=== PATIENT | female | born 1965 | race African-American/Black ===

== ENCOUNTER 2016-12-19 05:28 | Inpatient (IN) | payer OTHER ==
[2016-12-13 12:56] LABS: HEMATOCRIT 39.8 % (37.0-47.0); MCH 26.5 pg (26.0-34.0); MCHC 32.6 g/dL (28.0-37.0); MCV 81.4 fL (80.0-100.0); RBC 4.9 mil/uL (4.20-5.00); RDW 13.9 % (10.5-14.5); WBC 5.8 thou/uL (4.0-11.0)
[2016-12-13 12:58] LABS: URINE BILIRUBIN NEGATIVE (Negative); URINE BLOOD NEGATIVE (Negative); URINE COLOR YELLOW; URINE GLUCOSE-RANDOM* NEGATIVE (Negative); URINE KETONES NEGATIVE (Negative); URINE LEUKOCYTES-REFLEX NEGATIVE (Negative); URINE PROTEIN (DIPSTICK) NEGATIVE (Negative); URINE UROBILINOGEN 0.2 E.U./dl (0.2-1.0)
[2016-12-13 13:09] LABS: CALCIUM 9.6 mg/dL (8.5-10.1); CREATININE 0.7 mg/dL (0.6-1.0); POTASSIUM 3.8 mmol/L (3.5-5.1)
[2016-12-13 13:11] LABS: PROTIME 10.1 Seconds (9.3-11.4)
[~2016-12-19] VITALS: Ht 160 cm; Wt 103.4 kg
--- NOTE | ~2016-12-19 | O ---
[facility] [place] [address] OPERATIVE REPORT Name: JESÚS BLUE Room #: 150-1 ADM IN M.R.#: [id number] Admission: 12/19/16 Attend Phys: Gera Ellison MD Discharge: Date of : 61 Report #: [id number] THIS REPORT FOR: //name// CC: Valeria Ellison DATE OF SERVICE: 12/19/2016 PREOPERATIVE DIAGNOSIS: Right hip osteoarthritis. POSTOPERATIVE DIAGNOSIS: Right hip osteoarthritis. PROCEDURE: Right total hip arthroplasty. SURGEON: Gera Ellison MD. PROGRAM ANALYST: Carmen Lisa PA-C. INDICATION FOR ASSISTANCE: Extensive manipulation and retraction of soft tissues and leg was required during the surgery. This was afforded to me by my assistant analyst. ANESTHESIA: LMA. IMPLANTS: [employer] size 10 standard offset Synergy press fit stem, a size 52 R3 acetabular cup with a size 36 -3 Oxinium head. ESTIMATED BLOOD LOSS: 250 mL. COMPLICATIONS: None. SPECIMENS: None. CONDITION UPON LEAVING THE OPERATING ROOM: Stable. INDICATION FOR PROCEDURE: The patient is a 51-year-old female with severe right hip osteoarthritis. She had failed conservative treatment for this and after discussion with her, she elected for right total hip arthroplasty. DESCRIPTION OF PROCEDURE: Risks, benefits, alternatives, complications were discussed in detail with the patient including but not limited to risk of anesthesia, risk of damage to nerves, arteries, blood vessels, risk for infection, bleeding, risk for continued hip pain, leg length discrepancy, instability and need for reoperation. Informed consent was obtained from the patient. Right hip was appropriately marked in the preoperative holding area. IV Ancef was given for preoperative antibiotics. She was brought to the [address] [address] OPERATIVE REPORT Name: JESÚS BLUE Room #: 150-1 ADM IN M.R.#: [id number] Admission: 12/19/16 Attend Phys: Gera Ellison MD Discharge: Date of : 61 Report #: [id number] operating room and placed in the supine position on operating room table. LMA anesthesia was induced without complication. She was then placed in the left lateral decubitus position with the right hip uppermost. Right hip and lower extremity were prepped and draped in normal sterile fashion. Timeout was performed properly identifying the patient and procedure as well as the instrumentation and implants. All in the operating room were in agreement. Standard posterior approach to the right hip was made with a 10 blade through the skin. Dissection was taken down to the fascia with Bovie cautery and a Mak elevator was used to clean off the fascia. A fresh 10 blade was used to make a fascial incision and this was taken proximally and distally with curved Chen scissor. Charnley retractor was placed and the trochanteric bursa was taken down with Bovie. Piriformis tendon was identified, tagged and taken down with Bovie cautery. Short external rotators were also taken down with Bovie. Capsulotomy was made and capsule ends were tagged for later repair. The hip was dislocated and there was extensive osteoarthritic change of the femoral head. A femoral neck cut 1 cm proximal to lesser trochanter was made based on preoperative templating and the femoral head was removed. Deep acetabular retractors were placed and the labrum was removed sharply. Pulvinar was removed with Bovie cautery. Acetabulum was then sequentially reamed up to a size 52, at which point, there was excellent bleeding cancellous bone. A size 51 trial cup was placed and found to have a good fit. A trial cup was removed and a final size 52 R3 acetabular cup was placed in the acetabulum and seated. One acetabular screw was placed for backup fixation and the polyethylene liner for 36 head was placed. Attention was turned to the femur. This was reamed and broached up to a size 10, at which point, a size 10 broach was stable. This was trialed with a standard offset neck and a 36 -3 head. Hip was reduced, taken through range of motion, found to be stable, found to have equal leg lengths. Hip was dislocated and the broach was removed and final size 10 standard offset Synergy press fit stem was placed. Hip was again reduced, taken through range of motion, found to be stable, found to have equal leg lengths. Hip was dislocated one more time and a final size 36 -3 Oxinium head was placed. Hip again was reduced, taken through range of motion, found to be stable, found to have equal leg lengths. Wound was thoroughly irrigated with normal saline. Periarticular injection consisting of morphine, ropivacaine, epinephrine and Toradol was placed around the hip joint. A gram of vancomycin was placed deep in the hip joint. The capsule and piriformis were repaired with 0 FiberWire. Fascia was closed with 0 Vicryl. Skin was closed with 2-0 Vicryl and 3-0 Monocryl. Dermabond and Acticoat dressings were applied. The patient tolerated this procedure well and went to the recovery room under the care of anesthesia postoperatively. By: [id number] Gera Ellison MD /kuldip
--- NOTE | ~2016-12-19 | EKG ---
[place] [address] [facility] [place] [address] ELECTROCARDIOGRAM REPORT Name: JESÚS BLUE Room #: PRE IN [facility].#: [id number] Admission: Attend Phys: Gera Ellison MD Discharge: Date of : 61 Report #: [id number] THIS REPORT FOR: //name// [facility] Test Date: 2016-12-13 Test Time: 12:52:25 Pat Name: JESÚS BLUE Department: Room: Gender: F [employer] Helper: silvestre weller : 1965 Requested By: Gera Ellison Order Number: [id number] MD: Taz Joshi Measurements Intervals [place] Rate: 71 P: 30 FL: 143 QRS: 49 QRSD: 93 T: -33 QT: 396 QTc: 431 Interpretive Statements Sinus rhythm Inferior infarct, age indeterminate Compared to ECG 02/03/2014 11:29:13 Inferior Q waves and now present inferolateral ST and T wave abnormality is more pronounced Electronically Signed On 12-14-2016 9:43:11 CDT by Taz Joshi [email or web address] <ELECTRONICALLY SIGNED> By: Taz Joshi MD, [facility] 12/14/16 0943 [id number] 125 Taz Joshi MD, [facility] /EPI
[~2016-12-19 05:28] MED LIST: ALEVE220 MG PO; B-12250 MCG PO; BENICAR HCT 401 EACH PO; BLOOD PRESSURE MED; CALCIUM500 MG PO; CHOLESTEROL MA1 EACH PO; CRESTOR20 MG PO; FISH OIL 1,001000 M1 PO; FISH OIL 1,001000 M2 PO; HYDROXYZINE HCL25 M1 PO; LOSARTAN-HCTZ1 EAC2 PO; LOVENOX; MOTRIN PO; PERCOCET 10-321 EACH PO; PERCOCET PO; TRAMADOL 50 MG50 MG PO; VITAMIN D 5050000 I1 PO; VITAMIN D31000 UNI2 PO; VITAMIN E400 UNIT PO; VITAMINC500 PO; XARELTO10 MG PO
[2016-12-19 07:36] VITALS: BP 163/81
[2016-12-19 11:36] VITALS: BP 114/57
[2016-12-19 12:00] VITALS: BP 132/71
[2016-12-19 12:30] VITALS: BP 119/49
[2016-12-19 14:28] VITALS: BP 112/64
[2016-12-19 20:00] VITALS: BP 119/54
[2016-12-20] VITALS: BP 112/50; BP 123/68
[2016-12-20 04:00] VITALS: BP 104/51
[2016-12-20 06:08] LABS: HEMATOCRIT 31.9 % (37.0-47.0); HEMOGLOBIN 10.4 gm/dL (12.0-15.0); MCH 26.8 pg (26.0-34.0); MCHC 32.7 g/dL (28.0-37.0); MCV 81.9 fL (80.0-100.0); RBC 3.89 mil/uL (4.20-5.00); RDW 13.9 % (10.5-14.5)
[2016-12-20 08:22] VITALS: BP 112/65
[2016-12-20] MEDS ORDERED: PERCOCET PO (13:22)
[2016-12-20] MEDS ORDERED: MS CONTIN15 MG PO (13:23)
[2016-12-20] MEDS ORDERED: NEURONTIN 300300 M1 PO (13:23)
[2016-12-20 14:32] VITALS: BP 112/65
== END 2016-12-20 15:11 | disposition home or self-care (01) | DRG 470 ==
LOC: 4N 05:28 → TBA 05:28 → PRE 11:09 → 4N 11:30 → PRE 12:16 → ENTRNSPT 12-20 14:57 → EDTRNSPTSTS 12-20 14:59 → 4N 12-20 15:11
PROVIDERS: Orthopaedic Surgery
PROC: 0SR902A Replacement of Right Hip Joint with Metal on Polyethylene Synthetic Substitute, Uncemented, Open Approach (ICD-10-PCS; principal; 2016-12-19)
DX: M16.11 Unilateral primary osteoarthritis, right hip (principal); Z68.41 Body mass index [BMI] 40.0-44.9, adult; I10 Essential (primary) hypertension; Z96.652 Presence of left artificial knee joint; E66.9 Obesity, unspecified
CPT/HCPCS: 10790; 50010; 50101; 50382; 50414; 50612; 51771; 52256; 53000; 53078; 53368; 54118; 56524; 56527; 56528; 56530; 62110; 62900; 70005